=== PATIENT | female | born 1945 | race Hispanic/Latino ===

== ENCOUNTER → 2018-01-13 | Outpatient (CLI) | payer MEDICARE, OTHER ==
[~2018-01-13] MED LIST: ALPR0.5T8 PO; ASPI-1181 PO; CALC-727 PO; CHOL200074 PO; DICL50TA7 PO; DIVA125T32 PO; FOLI-74 PO; HYDR200T82 PO; LOVA40TA2 PO; PROM25TA7 PO; TRIA1CAP6 PO; [UNRECOGNIZED DRUG - OTHER] PO
== END | disposition home or self-care (01) ==
LOC: RAH 07:26
PROVIDERS: ATTEND Internal Medicine
DX: M48.02 Spinal stenosis, cervical region (principal); M47.22 Other spondylosis with radiculopathy, cervical region
CPT/HCPCS: 72141

== ENCOUNTER → 2018-09-22 | Outpatient (CLI) | payer OTHER | END | disposition home or self-care (01) | LOC: OIH 13:10 | PROVIDERS: ATTEND Internal Medicine | DX: I10 Essential (primary) hypertension (principal) | CPT/HCPCS: 71046 ==

== ENCOUNTER 2019-11-14 20:38 | Observation (INO) | payer OTHER ==
[~2019-11-14] VITALS: Ht 157.5 cm; Wt 66.7 kg
[2019-11-14 21:19] LABS: BASOPHILS % (AUTO) 0.4 % (0.0-5.0); EOSINOPHILS % (AUTO) 1.3 % (0.0-8.0); HEMATOCRIT 39.2 % (36-48); LYMPHOCYTES % (AUTO) 35.2 % (21.0-51.0); MEAN CORPUSCULAR HEMOGLOBIN 31.5 pg (27.0-33.0); MEAN CORPUSCULAR HGB CONC 34.2 g/dL (32.0-36.0); MEAN CORPUSCULAR VOLUME 92.2 fL (79-99); MONOCYTES % (AUTO) 7.2 % (3.0-13.0); NEUTROPHILS % (AUTO) 55.8 % (40.0-77.0); PLATELET COUNT (AUTO) 192 K/uL (130-400); RED BLOOD CELL COUNT(AUTO) 4.25 MIL/uL (4.00-5.50); RED CELL DISTRIBUTION WIDTH 12.7 % (11.0-15.5); WHITE BLOOD COUNT (AUTO) 7.9 K/uL (4.8-10.8)
[2019-11-14] MEDS ORDERED: ONDANSETRON HCL 4 MG/2 ML VIAL ONE (21:32)
[2019-11-14] MEDS ORDERED: MORPHINE SULFATE 4 MG/1ML SYG ONE (21:32)
[2019-11-14] MEDS ORDERED: KETOROLAC TROMETHAMINE 15MG/ML ONE (21:32)
[2019-11-14] MEDS ORDERED: SODIUM CHLORIDE 0.9% 1000ML 1,000 ML IV ONE (21:33)
[2019-11-14 21:34] LABS: ALBUMIN 3.9 g/dL (3.5-5.0); BILIRUBIN,DIRECT 0.1 mg/dL (0.0-0.3); BILIRUBIN,TOTAL 0.6 mg/dL (0.2-1.0); TOTAL PROTEIN, SERUM 8.2 g/dL (6.0-8.3)
[2019-11-14 22:13] LABS: POTASSIUM 2.5 mmol/L (3.5-5.1)
[2019-11-14] MEDS ORDERED: POTASSIUM CHLORIDE 20MEQ/100ML 200 ML IV ONE (22:58)
[2019-11-14] MEDS ORDERED: MORPHINE SULFATE 4 MG/1ML SYG IVP PRN (23:15)
[2019-11-14] MEDS: DEXTROSE 5 %-0.45 % NACL 1,000 ML IV SCH (23:45)
[2019-11-14] MEDS ORDERED: TOPI50TA24 PO (23:58)
[2019-11-14] MEDS ORDERED: PANT40TA25 PO (23:58)
[2019-11-15] VITALS (7 sets, daily range): BP systolic 93–139; BP diastolic 57–86
[2019-11-15] MEDS ORDERED: TRAM50TA4 PO (00:05)
[2019-11-15] MEDS: ONDANSETRON HCL 4 MG/2 ML VIAL IVP PRN ×2 (01:12→07:33)
[2019-11-15 04:37] LABS: HEMATOCRIT 36.9 % (36-48); MEAN CORPUSCULAR HEMOGLOBIN 31.5 pg (27.0-33.0); MEAN CORPUSCULAR HGB CONC 33.1 g/dL (32.0-36.0); MEAN CORPUSCULAR VOLUME 95.3 fL (79-99); PLATELET COUNT (AUTO) 179 K/uL (130-400); RED BLOOD CELL COUNT(AUTO) 3.87 MIL/uL (4.00-5.50); RED CELL DISTRIBUTION WIDTH 12.7 % (11.0-15.5); WHITE BLOOD COUNT (AUTO) 6.9 K/uL (4.8-10.8)
[2019-11-15 05:09] LABS: ALBUMIN 3.3 g/dL (3.5-5.0); BILIRUBIN,TOTAL 0.4 mg/dL (0.2-1.0); TOTAL PROTEIN, SERUM 6.8 g/dL (6.0-8.3)
[2019-11-15 05:34] LABS: POTASSIUM 2.7 mmol/L (3.5-5.1)
[2019-11-15] MEDS ORDERED: POTASSIUM CHLORIDE 10% ELIXIR 20 MEQ/15 ML UDCUP PO PRN (06:00)
[2019-11-15] MEDS ORDERED: LIDOCAINE HCL-MPF 1% 2ML VIAL IV PRN ×2 (06:00→06:15)
[2019-11-15] MEDS ORDERED: POTASSIUM CHLORIDE 20MEQ/100ML 100 ML IV PRN (06:15)
[2019-11-15] MEDS: POTASSIUM CHLORIDE 20MEQ/100ML 100 ML IV PRN (06:26)
[2019-11-15] MEDS ORDERED: PEG 3350/NA SULF,BICARB,CL/KCL 4000 ML SOLN PO SCH (06:30)
--- NOTE | 2019-11-15 06:30 | NUR ---
MD REX TORRES VISITED WITH PATIENT. POC DISCUSSED. NEW ORDERS RECEIVED AND CARRIED OUT. PATIENT AWARE OF NEW ORDERS. SPOUSE AT BEDSIDE. CALL LIGHT WITHIN REACH. WILL CONTINUE TO BE OBSERVED. Addendum: 11/15/19 at 0644 by KYLE MONTEIRO RN RN Amended: Links added.
--- NOTE | 2019-11-15 06:44 | NUR ---
RANDA COOPEREMA GIVEN PER MD ORDERS. RESULTS PENDING. Addendum: 11/15/19 at 0645 by KYLE MONTEIRO RN RN Amended: Links added.
--- NOTE | 2019-11-15 10:33 | NUR ---
INITIAL Patient lives with spouse. no home services. DME: [facility], shower chair. Patient states she is able to complete ADL's independently and drives. PCP is Dr. Everett. Pharmacy is [facility] in [place]. DCP is home. Addendum: 11/15/19 at 1034 by MARCUS THURSTON SS Amended: Links added.
[2019-11-15] MEDS: PANTOPRAZOLE 40 MG/VIAL IVP SCH (11:43)
[2019-11-15] MEDS ORDERED: MAGNESIUM HYDROXIDE 30 ML/UDCUP PO SCH (11:45)
[2019-11-15] MEDS: POTASSIUM CHLORIDE 20 MEQ ERTAB PO PRN ×2 (11:46→20:14)
[2019-11-15] MEDS: DEXTROSE 5 %-0.45 % NACL 1,000 ML IV SCH ×2 (11:46→20:14)
[2019-11-15] MEDS ORDERED: PROMETHAZINE HCL 25 MG/ML 1ML AMPULE IM PRN (12:00)
--- NOTE | 2019-11-15 12:02 | NUR ---
SPOKE WITH DR. DELACRUZ MADE AWARE PATIENT CONTINUES VOMITING NOT RELIEVED BY ZOFRAN. NEW ORDER PHENERGAN PRN, LACTULOSE 30CC Q8 UNTIL BOWEL MOVEMENT. D/C GOLFREDYLY, OK MOM PER PATIENT REQUEST. ALSO MADE DR. DELACRUZ AWARE OF EPISODE OF BRADYCARDIA IN 30S LASTING 11 SECONDS, PATIENT WAS VOMITING AT DURING EPISODE OF BRADYCARDIA. PER DR. DELACRUZ NO NEW ORDERS CONTINUE TO MONITOR
--- NOTE | 2019-11-15 12:25 | NUR ---
RD NOTIFICATION DIET: CLEAR LIQUIDS. PT UNABLE TO PASS BM AND HAS FECAL IMPACTION. LABS REVIEWED (K 2.7). MEDS REVIEWED. SKIN IS INTACT. PT STATED UNABLE TO PASS BM AT HOME AND WAS TAKING STOOL SOFTENERS. SHE HAS HAD EPISODES OF EMESIS SINCE TUESDAY WITH ABDOMINAL PAIN AND DISCOMFORT. RD PROVIDED HIGH FIBER AND FLUIDS NUTRITION EDUCATION WITH A LIST OF FOODS HIGH IN POTASSIUM RD RECOMMENDS TO ADVANCE DIET WHEN MEDICALLY FEASIBLE MONITOR BM AND K LEVEL Addendum: 11/15/19 at [address] Amended: Links added.
--- NOTE | 2019-11-15 12:30 | NUR ---
NUTRITION EDUCATION COMPLETED RD PROVIDED HIGH FIBER AND FLUIDS NUTRITION EDUCATION, ALONG WITH A LIST OF FOODS HIGH IN POTASSIUM. PT AND DAUGHTER VERBALIZED UNDERSTANDING. EDUCATION MATERIALS WERE PROVIDED IN FRENCH. Addendum: 11/15/19 at [address] Amended: Links added.
[2019-11-15] MEDS: LACTULOSE 20 GM/30 ML UDCUP PO SCH ×2 (16:31→20:00)
[2019-11-16 03:58] VITALS: BP 98/57
[2019-11-16] MEDS: LACTULOSE 20 GM/30 ML UDCUP PO SCH ×2 (04:00→12:00)
[2019-11-16] MEDS: POTASSIUM CHLORIDE 20 MEQ ERTAB PO PRN (06:50)
[2019-11-16] MEDS: DEXTROSE 5 %-0.45 % NACL 1,000 ML IV SCH ×2 (06:54→09:48)
[2019-11-16 08:20] VITALS: BP 117/72
[2019-11-16] MEDS: POTASSIUM CHLORIDE 20MEQ/100ML 100 ML IV PRN (09:47)
[2019-11-16] MEDS: PANTOPRAZOLE 40 MG/VIAL IVP SCH (09:47)
[2019-11-16 12:08] VITALS: BP 122/69
[2019-11-16 16:00] VITALS: BP 121/65
[2019-11-16 19:50] VITALS: BP 118/74
== END 2019-11-16 22:05 | disposition home or self-care (01) ==
LOC: EDH 20:38 → 4DH 22:30
PROVIDERS: ADMIT Internal Medicine; ATTEND Internal Medicine
DX: K29.70 Gastritis, unspecified, without bleeding (principal); E86.0 Dehydration; I10 Essential (primary) hypertension; E78.5 Hyperlipidemia, unspecified; G43.909 Migraine, unspecified, not intractable, without status migrainosus; K56.41 Fecal impaction; E87.2 Acidosis; Z90.710 Acquired absence of both cervix and uterus; E87.6 Hypokalemia
CPT/HCPCS: 36415 ×3; 74176; 80048; 80053; 80076; 82550; 83690; 84132 ×3; 84484; 85025; 85027; 93005; 96361 ×3; 96365; 96366 ×2; 96372; 96375; 96376; 99285; C9113 ×2; G0378 ×3; J1885; J2270 ×2; J2405 ×3; J2550; J3480 ×3; J3490; J7030; J7042 ×4

== ENCOUNTER 2020-11-17 09:39 | Observation (INO) | payer OTHER ==
[~2020-11-17] VITALS: Ht 157.5 cm; Wt 65.9 kg
[~2020-11-17 09:39] MED LIST changes: -ALPR0.5T8 PO; -ASPI-1181 PO; -CALC-727 PO; -CHOL200074 PO; -DICL50TA7 PO; -DIVA125T32 PO; -HYDR200T82 PO; -LOVA40TA2 PO; +PANT40TA54 PO; +TOPI50TA24 PO; +TRAM50TA4 PO
[2020-11-17 10:07] LABS: BASOPHILS % (AUTO) 0.3 % (0.0-5.0); EOSINOPHILS % (AUTO) 0.4 % (0.0-8.0); HEMATOCRIT 39.8 % (36-48); LYMPHOCYTES % (AUTO) 16.1 % (21.0-51.0); MEAN CORPUSCULAR HEMOGLOBIN 31.8 pg (27.0-33.0); MEAN CORPUSCULAR HGB CONC 35.4 g/dL (32.0-36.0); MEAN CORPUSCULAR VOLUME 89.8 fL (79-99); MONOCYTES % (AUTO) 6.7 % (3.0-13.0); NEUTROPHILS % (AUTO) 76.2 % (40.0-77.0); PLATELET COUNT (AUTO) 200 K/uL (130-400); RED BLOOD CELL COUNT(AUTO) 4.43 MIL/uL (4.00-5.50); RED CELL DISTRIBUTION WIDTH 11.9 % (11.0-15.5); WHITE BLOOD COUNT (AUTO) 7.3 K/uL (4.8-10.8)
[2020-11-17 10:18] LABS: ALBUMIN 4.1 g/dL (3.5-5.0); BILIRUBIN,TOTAL 0.8 mg/dL (0.2-1.0); CREATININE 0.8 mg/dL (0.5-1.5); TOTAL PROTEIN, SERUM 8.2 g/dL (6.0-8.3)
[2020-11-17 10:28] LABS: CREATINE KINASE, TOTAL 81 U/L (21-232); MYOGLOBIN 51 ng/mL (10-92); TROPONIN I < 0.04 ng/mL (0.00-0.06)
[2020-11-17 10:52] LABS: APPEARANCE,URINE Clear (CLEAR); BILIRUBIN,URINE Negative (NEGATIVE); COLOR,URINE Yellow (YELLOW); GLUCOSE, URINE (UA) Negative (NEGATIVE); KETONES,URINE Negative (NEGATIVE); LEUKOCYTE ESTERASE ,URINE Small (NEGATIVE); NITRATE,URINE Negative (NEGATIVE); OCCULT BLOOD,URINE Small (NEGATIVE); PROTEIN,URINE Negative (NEGATIVE); UROBILINOGEN,URINE 0.2 mg/dL (0.2-1.0)
[2020-11-17 11:08] LABS: BACTERIA,URINE Rare /HPF (None Seen); WBC,URINE 0-1 /HPF (0-1)
[2020-11-17] MEDS ORDERED: MORPHINE SULFATE 4 MG/1ML SYG ONE (11:22)
[2020-11-17] MEDS ORDERED: ONDANSETRON HCL 4 MG/2 ML VIAL ONE (11:22)
[2020-11-17] MEDS ORDERED: POTASSIUM BICARB/CIT AC 25 MEQ TABLET.EFF ONE (11:48)
[2020-11-17] MEDS ORDERED: IOHEXOL-350 75 ML VIAL IV ONE (12:35)
[2020-11-17] MEDS ORDERED: METOCLOPRAMIDE 10 MG/2 ML VIAL ONE (14:40)
[2020-11-17] MEDS ORDERED: POTASSIUM CHLORIDE 10% ELIXIR 20 MEQ/15 ML UDCUP PO PRN (15:15)
[2020-11-17] MEDS ORDERED: POTASSIUM CHLORIDE 20 MEQ ERTAB PO PRN (15:15)
[2020-11-17 21:10] VITALS: BP 160/69
[2020-11-17] MEDS: FAMOTIDINE/PF 20 MG/2 ML VIAL IV SCH (21:38)
[2020-11-17] MEDS: SODIUM CHLORIDE 0.9% 1000ML 1,000 ML IV SCH (21:38)
[2020-11-17] MEDS: LIDOCAINE HCL-MPF 1% 2ML VIAL IJ PRN (21:38)
[2020-11-17] MEDS: ONDANSETRON HCL 4 MG/2 ML VIAL IVP PRN (21:38)
[2020-11-17] MEDS: POTASSIUM CHLORIDE 20MEQ/100ML 100 ML IV PRN (21:39)
[2020-11-17] MEDS ORDERED: METO5TAB2 PO (22:10)
[2020-11-17] MEDS ORDERED: ALPR-411 PO (22:10)
[2020-11-17] MEDS ORDERED: METOCLOPRAMIDE 5 MG TABLET PO PRN (22:15)
[2020-11-17] MEDS ORDERED: FLU VACC QS2020-21(6MOS UP)/PF 60 MCG/0.5 ML ML IM ONE (23:30)
[2020-11-18] VITALS: BP 155/76
[2020-11-18] MEDS: ALPRAZOLAM 1 MG TAB PO SCH ×2 (00:17→10:38)
[2020-11-18] MEDS: POTASSIUM CHLORIDE 20MEQ/100ML 100 ML IV PRN (00:19)
[2020-11-18] MEDS: LIDOCAINE HCL-MPF 1% 2ML VIAL IJ PRN (00:20)
[2020-11-18 04:55] LABS: HEMATOCRIT 39.5 % (36-48); MEAN CORPUSCULAR HEMOGLOBIN 31.4 pg (27.0-33.0); MEAN CORPUSCULAR HGB CONC 34.7 g/dL (32.0-36.0); MEAN CORPUSCULAR VOLUME 90.4 fL (79-99); RED BLOOD CELL COUNT(AUTO) 4.37 MIL/uL (4.00-5.50); RED CELL DISTRIBUTION WIDTH 11.7 % (11.0-15.5); WHITE BLOOD COUNT (AUTO) 7.6 K/uL (4.8-10.8)
[2020-11-18] MEDS ORDERED: SUMA100T16 PO (05:06)
[2020-11-18 05:08] LABS: ALBUMIN 3.5 g/dL (3.5-5.0); BILIRUBIN,TOTAL 0.7 mg/dL (0.2-1.0); CREATININE 0.7 mg/dL (0.5-1.5); POTASSIUM 4.2 mmol/L (3.5-5.1); TOTAL PROTEIN, SERUM 7.2 g/dL (6.0-8.3)
[2020-11-18] MEDS: SODIUM CHLORIDE 0.9% 1000ML 1,000 ML IV SCH ×2 (05:08→10:38)
[2020-11-18 05:10] VITALS: BP 164/88
[2020-11-18] MEDS ORDERED: SUMATRIPTAN SUCCINATE 25 MG TABLET PO PRN (05:15)
[2020-11-18 07:08] VITALS: BP 149/74
[2020-11-18] MEDS ORDERED: PANTOPRAZOLE SODIUM 40 MG TABLET.DR PO SCH (07:30)
[2020-11-18] MEDS ORDERED: PNEUMOCOCCAL VACCINE POLYVALENT 0.5 ML/VIAL [PPV] IM ONE (09:00)
[2020-11-18] MEDS ORDERED: TRIAMTEREN/HCTZ 37.5/25 MG 1 TAB TAB PO SCH (09:00)
[2020-11-18] MEDS ORDERED: TOPIRAMATE 100 MG TAB PO SCH (09:00)
[2020-11-18] MEDS: FAMOTIDINE/PF 20 MG/2 ML VIAL IV SCH (10:35)
[2020-11-18] MEDS: ONDANSETRON HCL 4 MG/2 ML VIAL IVP PRN (10:35)
[2020-11-18 11:24] VITALS: BP 159/85
[2020-11-18 16:04] VITALS: BP 143/74
== END 2020-11-18 18:15 | disposition home or self-care (01) ==
LOC: EDH 09:39 → EDHIP 14:44 → 3CH 19:52
PROVIDERS: ADMIT Internal Medicine; ATTEND Internal Medicine
DX: E86.0 Dehydration (principal); E87.6 Hypokalemia; K52.9 Noninfective gastroenteritis and colitis, unspecified; E87.1 Hypo-osmolality and hyponatremia; I10 Essential (primary) hypertension; E78.00 Pure hypercholesterolemia, unspecified; F32.9 Major depressive disorder, single episode, unspecified; M19.90 Unspecified osteoarthritis, unspecified site; Z23 Encounter for immunization; Z90.710 Acquired absence of both cervix and uterus; Z79.899 Other long term (current) drug therapy; Z88.0 Allergy status to penicillin
CPT/HCPCS: 36415 ×2; 74177; 80053 ×2; 81001; 82150; 82550; 83690; 83874; 84484; 85025; 85027; 90732; 93005; 96361; 96365; 96366 ×2; 96375; 96376; 99285; G0008; G0009; G0378 ×27; J2270; J2405 ×3; J2765; J3480; J3490 ×3; J7030; Q2035; Q9967

== ENCOUNTER → 2021-03-26 | Outpatient (CLI) | payer OTHER ==
[~2021-03-26] MED LIST changes: +ALPR-411 PO; -FOLI-74 PO; +METO5TAB2 PO; -PROM25TA7 PO; +SUMA100T16 PO; -TRAM50TA4 PO; -[UNRECOGNIZED DRUG - OTHER] PO
== END | disposition home or self-care (01) ==
LOC: RAH 10:50
PROVIDERS: ATTEND Internal Medicine Gastroenterology
DX: K31.84 Gastroparesis (principal); R68.81 Early satiety; R11.2 Nausea with vomiting, unspecified
CPT/HCPCS: 78264; A9541

== ENCOUNTER 2021-04-30 18:33 | Emergency (ER) | payer OTHER ==
[~2021-04-30] VITALS: Ht 157.5 cm; Wt 68.0 kg
[2021-04-30 18:36] VITALS: BP 184/96
[2021-04-30] MEDS ORDERED: DiphenhydrAMINE HCL 50 MG/ML VIAL ONE (20:20)
[2021-04-30] MEDS ORDERED: PROCHLORPERAZINE 10MG/2ML INJ ONE (20:20)
[2021-04-30] MEDS ORDERED: FAMOTIDINE 20MG VIAL IV ONE ×2 (20:21→20:30)
[2021-04-30] MEDS ORDERED: DiphenhydrAMINE HCL 50 MG/ML VIAL IV ONE (20:30)
[2021-04-30] MEDS ORDERED: 0.9%NACL 1000ML 1,000 ML IV ONE ×2 (20:30→21:20)
[2021-04-30] MEDS ORDERED: PROCHLORPERAZINE 10MG/2ML INJ IV ONE (20:30)
[2021-04-30 21:21] LABS: CREATININE 0.9 mg/dL (0.5-1.5); POTASSIUM 3.7 mmol/L (3.5-5.1)
[2021-04-30 21:22] LABS: INR 1.09 (0.85-1.15); PROTHROMBIN TIME 11.8 SEC (9.6-11.6)
[2021-04-30 21:26] LABS: ALBUMIN 3.9 g/dL (3.5-5.0); BILIRUBIN,TOTAL 0.8 mg/dL (0.2-1.0); TOTAL PROTEIN, SERUM 8.2 g/dL (6.0-8.3)
[2021-04-30 21:35] LABS: BASOPHILS % (AUTO) 0.6 % (0.0-5.0); EOSINOPHILS % (AUTO) 0.1 % (0.0-8.0); HEMATOCRIT 39.9 % (36-48); LYMPHOCYTES % (AUTO) 22.1 % (21.0-51.0); MEAN CORPUSCULAR HEMOGLOBIN 30.8 pg (27.0-33.0); MEAN CORPUSCULAR HGB CONC 33.6 g/dL (32.0-36.0); MEAN CORPUSCULAR VOLUME 91.7 fL (79-99); NEUTROPHILS % (AUTO) 67.6 % (40.0-77.0); PLATELET COUNT (AUTO) 169 K/uL (130-400); RED BLOOD CELL COUNT(AUTO) 4.35 MIL/uL (4.00-5.50); RED CELL DISTRIBUTION WIDTH 12.9 % (11.0-15.5); WHITE BLOOD COUNT (AUTO) 7.1 K/uL (4.8-10.8)
[2021-04-30 21:42] LABS: PARTIAL THROMBOPLASTIN TIME 21.1 SEC (26.3-35.5)
[2021-04-30 21:57] LABS: B-TYPE NATRIURETIC PEPTIDE 232 pg/mL (0-100)
[2021-04-30 23:17] LABS: APPEARANCE,URINE Clear (CLEAR); BILIRUBIN,URINE Negative (NEGATIVE); COLOR,URINE Yellow (YELLOW); GLUCOSE, URINE (UA) Negative (NEGATIVE); KETONES,URINE Negative (NEGATIVE); LEUKOCYTE ESTERASE ,URINE Trace (NEGATIVE); NITRATE,URINE Negative (NEGATIVE); OCCULT BLOOD,URINE Small (NEGATIVE); PROTEIN,URINE POS 1+ mg/dL (NEGATIVE); UROBILINOGEN,URINE 0.2 mg/dL (0.2-1.0)
[2021-04-30 23:22] VITALS: BP 174/92
[2021-04-30 23:24] LABS: BACTERIA,URINE None Seen /HPF (None Seen); RBC,URINE 0-1 /HPF (0-1); SQUAMOUS EPITHELIAL CELL,UR Rare /HPF (0-2); WBC,URINE 0-1 /HPF (0-1)
[2021-05-01] MEDS ORDERED: FAMO-136 PO (01:10)
[2021-05-01] MEDS ORDERED: ONDA4TAB4 PO (01:10)
[2021-05-01 01:31] VITALS: BP 154/77
== END 2021-05-01 02:47 | disposition home or self-care (01) ==
LOC: EDH 18:33
DX: K29.70 Gastritis, unspecified, without bleeding (principal); K52.9 Noninfective gastroenteritis and colitis, unspecified; K29.80 Duodenitis without bleeding; E86.0 Dehydration; I10 Essential (primary) hypertension; E78.00 Pure hypercholesterolemia, unspecified; M19.90 Unspecified osteoarthritis, unspecified site; G43.909 Migraine, unspecified, not intractable, without status migrainosus; Z88.0 Allergy status to penicillin; Z79.899 Other long term (current) drug therapy
CPT/HCPCS: 36415; 71045; 80053; 81001; 83880; 84484; 85025; 85610; 85730; 93005; 96361; 96374; 96375; 99285; J0780; J1200; J3490; J7030

== ENCOUNTER 2022-02-17 06:06 | Emergency (ER) | payer OTHER ==
[~2022-02-17] VITALS: Ht 157.5 cm; Wt 67.6 kg
[~2022-02-17 06:06] MED LIST changes: +FAMO-136 PO; +ONDA4TAB4 PO; -TRIA1CAP6 PO; +TRIA1CAP87 PO
[2022-02-17] MEDS ORDERED: ONDANSETRON 4MG INJ ONE (06:30)
[2022-02-17] MEDS ORDERED: MAG/ALUM/SIMETH 30 ML UDCUP ONE (06:30)
[2022-02-17 06:35] LABS: BASOPHILS % (AUTO) 0.7 % (0.0-5.0); EOSINOPHILS % (AUTO) 2.2 % (0.0-8.0); HEMATOCRIT 37.8 % (36-48); LYMPHOCYTES % (AUTO) 34.7 % (21.0-51.0); MEAN CORPUSCULAR HEMOGLOBIN 31.9 pg (27.0-33.0); MEAN CORPUSCULAR HGB CONC 34.4 g/dL (32.0-36.0); MEAN CORPUSCULAR VOLUME 92.6 fL (79-99); MONOCYTES % (AUTO) 7.8 % (3.0-13.0); NEUTROPHILS % (AUTO) 54.4 % (40.0-77.0); PLATELET COUNT (AUTO) 191 K/uL (130-400); RED BLOOD CELL COUNT(AUTO) 4.08 MIL/uL (4.00-5.50); RED CELL DISTRIBUTION WIDTH 13.4 % (11.0-15.5); WHITE BLOOD COUNT (AUTO) 5.4 K/uL (4.8-10.8)
[2022-02-17 06:46] LABS: APPEARANCE,URINE CLEAR (CLEAR); BILIRUBIN,URINE NEGATIVE (NEGATIVE); COLOR,URINE YELLOW (YELLOW); GLUCOSE, URINE (UA) NEGATIVE (NEGATIVE); KETONES,URINE NEGATIVE (NEGATIVE); LEUKOCYTE ESTERASE ,URINE SMALL (NEGATIVE); NITRATE,URINE NEGATIVE (NEGATIVE); OCCULT BLOOD,URINE TRACE-INTACT (NEGATIVE); PROTEIN,URINE NEGATIVE (NEGATIVE); UROBILINOGEN,URINE 0.2 mg/dL (0.2-1.0)
[2022-02-17 06:51] LABS: BACTERIA,URINE Rare /HPF (None Seen); RBC,URINE 0-1 /HPF (0-1); SQUAMOUS EPITHELIAL CELL,UR Rare /HPF (0-2); WBC,URINE 0-1 /HPF (0-1)
[2022-02-17] MEDS ORDERED: MAG/ALUM/SIMETH 30 ML UDCUP PO ONE (07:00)
[2022-02-17] MEDS ORDERED: ONDANSETRON 4MG INJ IVP ONE (07:00)
[2022-02-17 07:01] LABS: BILIRUBIN,TOTAL 0.9 mg/dL (0.2-1.0); CREATININE 0.8 mg/dL (0.5-1.5); POTASSIUM 3.5 mmol/L (3.5-5.1); TOTAL PROTEIN, SERUM 7.5 g/dL (6.0-8.3)
[2022-02-17] MEDS ORDERED: METOCLOPRAMIDE 10 MG/2 ML VIAL IVP ONE (08:00)
[2022-02-17] MEDS ORDERED: MORPHINE 2 MG SYG IVP ONE (08:00)
[2022-02-17] MEDS ORDERED: LOSARTAN 25 MG TABLET PO ONE (08:00)
[2022-02-17] MEDS ORDERED: LIDOCAINE HCL 2% VISCOUS 15 ML UDCUP PO ONE (08:00)
[2022-02-17] MEDS ORDERED: MAG-55 PO (08:35)
[2022-02-17 08:52] VITALS: BP 159/60
[2022-02-17] MEDS ORDERED: FURO20TA4 PO (22:24)
[2022-02-17] MEDS ORDERED: LOSA25TA41 PO (22:24)
[2022-02-19] MEDS ORDERED: PROPOFOL 10 MG/ML 20ML VIAL IV ONE ×2 (12:13)
[2022-02-19] MEDS ORDERED: LIDOCAINE PF 100MG/5ML (2%) SYRINGE 5ML ONE (12:14)
[2022-02-19] MEDS ORDERED: GLYCOPYRROLATE 1 MG/5 ML SYRINGE ONE (12:15)
== END 2022-02-17 08:54 | disposition home or self-care (01) ==
LOC: EDH 06:06
DX: K29.70 Gastritis, unspecified, without bleeding (principal); T39.395A Adverse effect of other nonsteroidal anti-inflammatory drugs [NSAID], initial encounter; Z20.822 Contact with and (suspected) exposure to COVID-19; I10 Essential (primary) hypertension; Z79.899 Other long term (current) drug therapy; Z88.0 Allergy status to penicillin; Y92.89 Other specified places as the place of occurrence of the external cause
CPT/HCPCS: 36415; 80053; 81001; 84484; 85025; 87635; 87804 ×2; 93005; 96374; 96375; 99284; C9803; J2405; J2765

== ENCOUNTER 2022-02-17 16:18 | Observation (INO) | payer OTHER ==
[~2022-02-17] VITALS: Ht 157.5 cm; Wt 69.0 kg
[~2022-02-17 16:18] MED LIST changes: +MAG-55 PO
[2022-02-17 16:54] LABS: HEMATOCRIT 37.8 % (36-48); MEAN CORPUSCULAR HEMOGLOBIN 31.9 pg (27.0-33.0); MEAN CORPUSCULAR HGB CONC 34.1 g/dL (32.0-36.0); MEAN CORPUSCULAR VOLUME 93.3 fL (79-99); RED BLOOD CELL COUNT(AUTO) 4.05 MIL/uL (4.00-5.50); RED CELL DISTRIBUTION WIDTH 13.2 % (11.0-15.5); WHITE BLOOD COUNT (AUTO) 6.7 K/uL (4.8-10.8)
[2022-02-17] MEDS ORDERED: MAG/ALUM/SIMETH 30 ML UDCUP PO PRN (17:00)
[2022-02-17] MEDS ORDERED: CLONIDINE HCL 0.1 MG TABLET PO PRN (17:00)
[2022-02-17] MEDS ORDERED: 0.9%NACL 1000ML 1,000 ML IV SCH (17:00)
[2022-02-17] MEDS ORDERED: DICYCLOMINE HCL 10 MG/5 ML ML PO PRN (17:00)
[2022-02-17 17:11] LABS: CARBON DIOXIDE 24 mmol/L (21-32); CHLORIDE 100 mmol/L (101-111); CREATININE 0.9 mg/dL (0.5-1.5); GLOMERULAR FILTR. RATE CALC 65 mL/min (>60); GLUCOSE,RANDOM 108 mg/dL (70-105); POTASSIUM 3.2 mmol/L (3.5-5.1); SODIUM SERUM 134 mmol/L (136-145); UREA NITROGEN, BLOOD 14 mg/dL (7-18)
[2022-02-17] MEDS: PANTOPRAZOLE 40 MG TAB DR PO SCH (17:19)
[2022-02-17] MEDS: ONDANSETRON 4MG INJ IVP PRN (17:20)
[2022-02-17 17:22] LABS: ALANINE AMINOTRANSFERASE 34 U/L (12-78); ALBUMIN 4.1 g/dL (3.5-5.0); AMYLASE 41 U/L (25-115); ASPARTATE AMINOTRANSFERASE 21 U/L (10-37); BILIRUBIN,TOTAL 0.9 mg/dL (0.2-1.0); CREATINE KINASE, TOTAL 133 U/L (21-232); LIPASE 66 U/L (114-286); MYOGLOBIN 154 ng/mL (10-92); TOTAL PROTEIN, SERUM 7.6 g/dL (6.0-8.3)
[2022-02-17 17:37] LABS: CRP QUANTITATIVE < 2.00 mg/L (0.00-9.0)
[2022-02-17] MEDS: 1/2 NS 1000ML 1,000 ML IV SCH (17:49)
[2022-02-17 18:06] LABS: APPEARANCE,URINE Clear (CLEAR); BILIRUBIN,URINE Negative (NEGATIVE); COLOR,URINE Yellow (YELLOW); GLUCOSE, URINE (UA) Negative (NEGATIVE); KETONES,URINE Trace mg/dL (NEGATIVE); LEUKOCYTE ESTERASE ,URINE Negative (NEGATIVE); NITRATE,URINE Negative (NEGATIVE); OCCULT BLOOD,URINE Negative (NEGATIVE); PROTEIN,URINE Negative (NEGATIVE); UROBILINOGEN,URINE 0.2 mg/dL (0.2-1.0)
[2022-02-17] MEDS ORDERED: KCL 20 MEQ ERTAB PO PRN (18:30)
[2022-02-17] MEDS ORDERED: POTASSIUM CHLORIDE 10% ELIXIR 20 MEQ/15 ML UDCUP PO PRN (18:30)
[2022-02-17] MEDS: SUCRALFATE 1 GM TABLET PO PRN (20:33)
[2022-02-17 22:05] VITALS: BP 172/89
[2022-02-17] MEDS ORDERED: FURO20TA4 PO (22:24)
[2022-02-17] MEDS ORDERED: LOSA25TA41 PO (22:24)
[2022-02-17] MEDS: LIDOCAINE HCL-MPF 1% 2ML VIAL IJ PRN (22:33)
[2022-02-17] MEDS: POTASSIUM CHLORIDE 20MEQ/100ML 100 ML IV PRN (22:33)
[2022-02-17] MEDS: ACETAMINOPHEN 325 MG TAB PO PRN (22:58)
[2022-02-17 23:57] VITALS: BP 150/78
[2022-02-18] MEDS: LIDOCAINE HCL-MPF 1% 2ML VIAL IJ PRN (00:32)
[2022-02-18] MEDS: POTASSIUM CHLORIDE 20MEQ/100ML 100 ML IV PRN (00:33)
[2022-02-18] MEDS: 1/2 NS 1000ML 1,000 ML IV SCH ×3 (03:00→13:00)
[2022-02-18] MEDS: ONDANSETRON 4MG INJ IVP PRN (03:51)
[2022-02-18 04:00] VITALS: BP 165/88
[2022-02-18 05:00] LABS: HEMATOCRIT 34.4 % (36-48); RED BLOOD CELL COUNT(AUTO) 3.66 MIL/uL (4.00-5.50); RED CELL DISTRIBUTION WIDTH 13.8 % (11.0-15.5); WHITE BLOOD COUNT (AUTO) 5.9 K/uL (4.8-10.8)
[2022-02-18] MEDS: SUCRALFATE 1 GM TABLET PO PRN (05:05)
[2022-02-18 05:18] LABS: CREATININE 0.8 mg/dL (0.5-1.5)
[2022-02-18] MEDS ORDERED: METOCLOPRAMIDE 5 MG TABLET PO PRN (07:00)
[2022-02-18 07:05] VITALS: BP 174/99
[2022-02-18] MEDS: LOSARTAN 25 MG TABLET PO SCH (08:10)
[2022-02-18] MEDS: PANTOPRAZOLE 40 MG TAB DR PO SCH (08:10)
[2022-02-18] MEDS: FUROSEMIDE 20 MG TABLET PO SCH (08:11)
[2022-02-18] MEDS: ALPRAZOLAM 1 MG TAB PO SCH ×3 (08:18→21:15)
[2022-02-18] MEDS: TOPIRAMATE 25 MG TABLET PO SCH ×2 (08:55→21:16)
[2022-02-18 11:05] VITALS: BP 128/71
[2022-02-18] MEDS: SUMATRIPTAN SUCCINATE 25 MG TABLET PO PRN (13:15)
[2022-02-18 15:05] VITALS: BP 148/77
[2022-02-18 20:30] VITALS: BP 108/77
[2022-02-19] VITALS (22 sets, daily range): BP systolic 106–177; BP diastolic 63–134
[2022-02-19] MEDS: ACETAMINOPHEN 325 MG TAB PO PRN (04:24)
[2022-02-19 05:08] LABS: HEMATOCRIT 35.2 % (36-48); MEAN CORPUSCULAR HEMOGLOBIN 31.3 pg (27.0-33.0); MEAN CORPUSCULAR HGB CONC 32.7 g/dL (32.0-36.0); MEAN CORPUSCULAR VOLUME 95.7 fL (79-99); RED BLOOD CELL COUNT(AUTO) 3.68 MIL/uL (4.00-5.50); RED CELL DISTRIBUTION WIDTH 13.9 % (11.0-15.5); WHITE BLOOD COUNT (AUTO) 6.2 K/uL (4.8-10.8)
[2022-02-19] MEDS: 1/2 NS 1000ML 1,000 ML IV SCH ×3 (05:27→19:00)
[2022-02-19 05:41] LABS: ALBUMIN 3.4 g/dL (3.5-5.0); BILIRUBIN,TOTAL 0.8 mg/dL (0.2-1.0); CREATININE 0.8 mg/dL (0.5-1.5); POTASSIUM 3.8 mmol/L (3.5-5.1); TOTAL PROTEIN, SERUM 6.5 g/dL (6.0-8.3)
[2022-02-19] MEDS: ALPRAZOLAM 1 MG TAB PO SCH ×3 (08:14→21:22)
[2022-02-19] MEDS: FUROSEMIDE 20 MG TABLET PO SCH (08:14)
[2022-02-19] MEDS: PANTOPRAZOLE 40 MG TAB DR PO SCH (08:14)
[2022-02-19] MEDS: LOSARTAN 25 MG TABLET PO SCH (08:14)
[2022-02-19] MEDS: TOPIRAMATE 25 MG TABLET PO SCH ×2 (08:40→21:22)
[2022-02-20] VITALS: BP 133/73
[2022-02-20] MEDS ORDERED: SUMATRIPTAN SUCCINATE 6 MG/VIAL 0.5ML SQ ONE (03:03)
[2022-02-20] MEDS: ACETAMINOPHEN 325 MG TAB PO PRN (03:17)
[2022-02-20 04:00] VITALS: BP 139/74
[2022-02-20] MEDS: SUMATRIPTAN SUCCINATE 25 MG TABLET PO PRN (06:48)
[2022-02-20 08:00] VITALS: BP 130/72
[2022-02-20] MEDS: TOPIRAMATE 25 MG TABLET PO SCH (08:35)
[2022-02-20] MEDS: ALPRAZOLAM 1 MG TAB PO SCH (08:35)
[2022-02-20] MEDS: FUROSEMIDE 20 MG TABLET PO SCH (08:35)
[2022-02-20] MEDS: LOSARTAN 25 MG TABLET PO SCH (08:35)
[2022-02-20] MEDS: PANTOPRAZOLE 40 MG TAB DR PO SCH (08:35)
== END 2022-02-20 10:45 | disposition home or self-care (01) ==
LOC: EDH 16:18 → EDHIP 16:19 → 3AH 21:30
PROVIDERS: ADMIT Internal Medicine; ATTEND Internal Medicine
DX: K21.00 Gastro-esophageal reflux disease with esophagitis, without bleeding (principal); Z20.822 Contact with and (suspected) exposure to COVID-19; K52.9 Noninfective gastroenteritis and colitis, unspecified; K57.30 Diverticulosis of large intestine without perforation or abscess without bleeding; K29.00 Acute gastritis without bleeding; K76.0 Fatty (change of) liver, not elsewhere classified; D50.9 Iron deficiency anemia, unspecified; R11.2 Nausea with vomiting, unspecified; I10 Essential (primary) hypertension; M48.02 Spinal stenosis, cervical region; G43.909 Migraine, unspecified, not intractable, without status migrainosus; E86.0 Dehydration; M19.90 Unspecified osteoarthritis, unspecified site; Z79.899 Other long term (current) drug therapy; Z90.710 Acquired absence of both cervix and uterus; Z88.0 Allergy status to penicillin
CPT/HCPCS: 36415 ×3; 43239; 71046; 71250; 74176; 76700; 78227; 80048; 80053 ×2; 81003; 82150; 82550; 83690 ×3; 83874; 84132; 84484; 85027 ×3; 85651; 86140; 87635; 93005; 96361 ×3; 96374; 96376; A4215; A4606; A4620; A9537; G0378 ×65; G0379; J2405 ×2; J3030; J3480 ×2; J3490 ×2; J7030

== ENCOUNTER 2022-07-25 10:14 | Emergency (ER) | payer OTHER ==
[~2022-07-25] VITALS: Ht 157.5 cm; Wt 67.1 kg
[~2022-07-25 10:14] MED LIST changes: -FAMO-136 PO; +FURO20TA4 PO; +LOSA25TA41 PO; -TRIA1CAP87 PO
[2022-07-25 11:11] LABS: BASOPHILS % (AUTO) 0.5 % (0.0-5.0); EOSINOPHILS % (AUTO) 1.3 % (0.0-8.0); HEMATOCRIT 40.2 % (36-48); LYMPHOCYTES % (AUTO) 30.1 % (21.0-51.0); MEAN CORPUSCULAR HEMOGLOBIN 31.6 pg (27.0-33.0); MEAN CORPUSCULAR HGB CONC 33.8 g/dL (32.0-36.0); MEAN CORPUSCULAR VOLUME 93.3 fL (79-99); MONOCYTES % (AUTO) 7.3 % (3.0-13.0); NEUTROPHILS % (AUTO) 60.5 % (40.0-77.0); PLATELET COUNT (AUTO) 153 K/uL (130-400); RED BLOOD CELL COUNT(AUTO) 4.31 MIL/uL (4.00-5.50); RED CELL DISTRIBUTION WIDTH 12.5 % (11.0-15.5); WHITE BLOOD COUNT (AUTO) 6.1 K/uL (4.8-10.8)
[2022-07-25 11:31] LABS: CREATININE 0.9 mg/dL (0.5-1.5); POTASSIUM 3.7 mmol/L (3.5-5.1)
[2022-07-25 11:35] LABS: ALBUMIN 3.8 g/dL (3.5-5.0); TOTAL PROTEIN, SERUM 7.8 g/dL (6.0-8.3)
[2022-07-25 12:04] LABS: APPEARANCE,URINE CLEAR (CLEAR); BILIRUBIN,URINE NEGATIVE (NEGATIVE); COLOR,URINE COLORLESS (YELLOW); GLUCOSE, URINE (UA) NEGATIVE (NEGATIVE); KETONES,URINE 5 mg/dL (NEGATIVE); LEUKOCYTE ESTERASE ,URINE NEGATIVE Leu/uL (NEGATIVE); NITRATE,URINE NEGATIVE (NEGATIVE); OCCULT BLOOD,URINE NEGATIVE (NEGATIVE); PROTEIN,URINE NEGATIVE (NEGATIVE); UROBILINOGEN,URINE 0.2 mg/dL (0.2-1.0)
[2022-07-25 12:12] LABS: BACTERIA,URINE RARE /HPF (None Seen); RBC,URINE 0-1 /HPF (0-1); SQUAMOUS EPITHELIAL CELL,UR RARE /HPF (0-2); WBC,URINE 0-1 /HPF (0-1)
[2022-07-25] MEDS ORDERED: 0.9%NACL 1000ML 1,000 ML IV ONE (13:00)
[2022-07-25] MEDS ORDERED: LOPERAMIDE HCL 2 MG CAP PO ONE (13:00)
[2022-07-25] MEDS ORDERED: ONDANSETRON 4MG INJ IVP ONE (13:00)
[2022-07-25] MEDS ORDERED: ONDA4TAB10 PO (14:07)
[2022-07-25 14:49] VITALS: BP 173/80
== END 2022-07-25 15:13 | disposition home or self-care (01) ==
LOC: EDH 10:14
DX: K52.9 Noninfective gastroenteritis and colitis, unspecified (principal); E86.0 Dehydration; F32.A Depression, unspecified; F41.9 Anxiety disorder, unspecified; K21.9 Gastro-esophageal reflux disease without esophagitis; Z90.49 Acquired absence of other specified parts of digestive tract; Z88.0 Allergy status to penicillin; Z79.899 Other long term (current) drug therapy
CPT/HCPCS: 99283; 96374; 96361; 80053; 85025; 81001; 36415; J7030; J2405

== ENCOUNTER → 2022-07-28 | Outpatient (CLI) | payer OTHER ==
[~2022-07-28] MED LIST changes: +ONDA4TAB10 PO
== END | disposition home or self-care (01) ==
LOC: RAH 09:11
PROVIDERS: ATTEND Internal Medicine
DX: M47.815 Spondylosis without myelopathy or radiculopathy, thoracolumbar region (principal); R11.2 Nausea with vomiting, unspecified
CPT/HCPCS: 74021

== ENCOUNTER 2022-08-19 18:04 | Emergency (ER) | payer OTHER ==
[~2022-08-19] VITALS: Ht 157.5 cm; Wt 66.2 kg
[2022-08-19 18:53] LABS: BASOPHILS % (AUTO) 0.8 % (0.0-5.0); EOSINOPHILS % (AUTO) 2.4 % (0.0-8.0); HEMATOCRIT 38.8 % (36-48); LYMPHOCYTES % (AUTO) 40.4 % (21.0-51.0); MEAN CORPUSCULAR HEMOGLOBIN 31.6 pg (27.0-33.0); MEAN CORPUSCULAR HGB CONC 33.8 g/dL (32.0-36.0); MEAN CORPUSCULAR VOLUME 93.7 fL (79-99); MONOCYTES % (AUTO) 6.5 % (3.0-13.0); NEUTROPHILS % (AUTO) 49.6 % (40.0-77.0); PLATELET COUNT (AUTO) 156 K/uL (130-400); RED BLOOD CELL COUNT(AUTO) 4.14 MIL/uL (4.00-5.50); RED CELL DISTRIBUTION WIDTH 13.2 % (11.0-15.5); WHITE BLOOD COUNT (AUTO) 6.2 K/uL (4.8-10.8)
[2022-08-19 19:01] LABS: POTASSIUM 3.8 mmol/L (3.5-5.1)
[2022-08-19 19:05] LABS: ALBUMIN 3.7 g/dL (3.5-5.0); TOTAL PROTEIN, SERUM 7.8 g/dL (6.0-8.3)
[2022-08-19 19:27] LABS: APPEARANCE,URINE CLEAR (CLEAR); BILIRUBIN,URINE NEGATIVE (NEGATIVE); COLOR,URINE COLORLESS (YELLOW); GLUCOSE, URINE (UA) NEGATIVE (NEGATIVE); KETONES,URINE NEGATIVE (NEGATIVE); LEUKOCYTE ESTERASE ,URINE NEGATIVE Leu/uL (NEGATIVE); NITRATE,URINE NEGATIVE (NEGATIVE); OCCULT BLOOD,URINE NEGATIVE (NEGATIVE); PROTEIN,URINE NEGATIVE (NEGATIVE); UROBILINOGEN,URINE 0.2 mg/dL (0.2-1.0)
[2022-08-19] MEDS ORDERED: HYDRALAZINE 20MG/ML VIAL IV ONE (19:30)
[2022-08-19 20:00] VITALS: BP 163/68
[2022-08-19] MEDS ORDERED: ONDANSETRON 4MG INJ IV ONE ×2 (20:00→20:30)
[2022-08-19] MEDS ORDERED: ACETAMINOPHEN 500 MG TABLET PO ONE (20:00)
[2022-08-19] MEDS ORDERED: LOSA50TA64 PO (20:24)
[2022-08-19] MEDS ORDERED: NIRM1TAB5 PO (20:24)
[2022-08-19] MEDS ORDERED: MORPHINE 4 MG SYG IVP ONE (20:30)
== END 2022-08-19 20:51 | disposition home or self-care (01) ==
LOC: EDH 18:04
DX: U07.1 COVID-19 (principal); I10 Essential (primary) hypertension; F41.9 Anxiety disorder, unspecified; K21.9 Gastro-esophageal reflux disease without esophagitis; Z88.0 Allergy status to penicillin; Z90.49 Acquired absence of other specified parts of digestive tract; Z79.899 Other long term (current) drug therapy
CPT/HCPCS: 99284; 96374; 96375; 87635; 83735; 84484; 80053; 83880; 85025; 81003; 36415; 96376; 93005; C9803; J0360; J2405 ×2; J2270

== ENCOUNTER → 2022-10-07 | Outpatient (CLI) | payer OTHER ==
[~2022-10-07] MED LIST changes: +LOSA50TA64 PO; +NIRM1TAB5 PO
== END | disposition home or self-care (01) ==
LOC: RAH 15:39
PROVIDERS: ATTEND Student in an Organized Health Care Education/Training Program
DX: G56.11 Other lesions of median nerve, right upper limb (principal); Z88.0 Allergy status to penicillin
CPT/HCPCS: 71046

== ENCOUNTER → 2022-12-20 | Outpatient (CLI) | payer OTHER ==
[~2022-12-20] MED LIST changes: +REGADENOSON 0.4 MG/5 ML PF SYG IVP ONE; +TOPI-255 PO; -TOPI50TA24 PO
== END | disposition home or self-care (01) ==
LOC: SHCH 07:50
PROVIDERS: ATTEND Internal Medicine Cardiovascular Disease
DX: Z01.810 Encounter for preprocedural cardiovascular examination (principal); G56.01 Carpal tunnel syndrome, right upper limb; E78.5 Hyperlipidemia, unspecified; I10 Essential (primary) hypertension; Z79.899 Other long term (current) drug therapy
CPT/HCPCS: 78452; 96374; 93017; J2785; A9500 ×2

== ENCOUNTER → 2023-03-29 | Outpatient (CLI) | payer OTHER ==
[~2023-03-29] MED LIST changes: -REGADENOSON 0.4 MG/5 ML PF SYG IVP ONE
== END | disposition home or self-care (01) ==
LOC: SHCH 07:32
PROVIDERS: ATTEND Internal Medicine Cardiovascular Disease
DX: I37.1 Nonrheumatic pulmonary valve insufficiency (principal); I10 Essential (primary) hypertension; E78.5 Hyperlipidemia, unspecified
CPT/HCPCS: 93306

== ENCOUNTER 2023-05-07 19:10 | Emergency (ER) | payer OTHER ==
[~2023-05-07] VITALS: Ht 157.5 cm; Wt 77.1 kg
[2023-05-07] MEDS ORDERED: 0.9%NACL 1000ML 1,000 ML IV SCH (19:30)
[2023-05-07] MEDS ORDERED: ONDANSETRON 4MG INJ IVP ONE (19:30)
[2023-05-07] MEDS ORDERED: PANTOPRAZOLE 40 MG/VIAL IVP ONE (19:30)
[2023-05-07 19:45] LABS: APPEARANCE,URINE CLEAR (CLEAR); BILIRUBIN,URINE NEGATIVE (NEGATIVE); COLOR,URINE COLORLESS (YELLOW); GLUCOSE, URINE (UA) NEGATIVE (NEGATIVE); KETONES,URINE NEGATIVE (NEGATIVE); LEUKOCYTE ESTERASE ,URINE NEGATIVE Leu/uL (NEGATIVE); NITRATE,URINE NEGATIVE (NEGATIVE); OCCULT BLOOD,URINE NEGATIVE (NEGATIVE); PROTEIN,URINE 30 mg/dL (NEGATIVE); UROBILINOGEN,URINE 0.2 mg/dL (0.2-1.0)
[2023-05-07 19:46] LABS: ADD UA MICROSCOPIC YES
[2023-05-07 19:47] LABS: POTASSIUM 3.1 mmol/L (3.5-5.1)
[2023-05-07 19:50] LABS: BASOPHILS # (AUTO) 0.04 K/uL (0.00-0.20); BASOPHILS % (AUTO) 0.5 % (0.0-5.0); EOSINOPHILS % (AUTO) 1.3 % (0.0-8.0); HEMATOCRIT 41.9 % (36-48); IMMATURE GRANULOCYTE ABSOLUTE 0.02 K/uL (0-1); LYMPHOCYTES % (AUTO) 38.8 % (21.0-51.0); MEAN CORPUSCULAR HEMOGLOBIN 33.4 pg (27.0-33.0); MEAN CORPUSCULAR HGB CONC 35.3 g/dL (32.0-36.0); MEAN CORPUSCULAR VOLUME 94.6 fL (79-99); MONOCYTES # (AUTO) 0.6 K/uL (0.1-1.0); MONOCYTES % (AUTO) 7.3 % (3.0-13.0); NEUTROPHILS % (AUTO) 51.8 % (40.0-77.0); PLATELET COUNT (AUTO) 221 K/uL (130-400); RED BLOOD CELL COUNT(AUTO) 4.43 MIL/uL (4.00-5.50); RED CELL DISTRIBUTION WIDTH 12.6 % (11.0-15.5); WHITE BLOOD COUNT (AUTO) 7.7 K/uL (4.8-10.8)
[2023-05-07 19:51] LABS: BILIRUBIN,TOTAL 0.5 mg/dL (0.2-1.0); TOTAL PROTEIN, SERUM 8.5 g/dL (6.0-8.3)
[2023-05-07 20:00] LABS: BACTERIA,URINE RARE /HPF (None Seen); SQUAMOUS EPITHELIAL CELL,UR RARE /HPF (0-2); WBC,URINE 0-1 /HPF (0-1)
[2023-05-07] MEDS ORDERED: HALOPERIDOL INJ 5 MG/ML VIAL IV ONE (20:00)
[2023-05-07] MEDS ORDERED: HALOPERIDOL INJ 5 MG/ML VIAL IV SCH (20:00)
[2023-05-07 20:13] LABS: AMPHET/METH SCREEN,URINE NEGATIVE (NEGATIVE); BARBITURATE SCREEN, URINE NEGATIVE (NEGATIVE); BENZODIAZEPINES SCREEN,URINE NEGATIVE (NEGATIVE); CANNABINOID SCREEN,URINE NEGATIVE (NEGATIVE); COCAINE SCREEN,URINE NEGATIVE (NEGATIVE); OPIATE SCREEN,URINE NEGATIVE (NEGATIVE); PHENCYCLIDINE SCREEN,URINE NEGATIVE (NEGATIVE)
[2023-05-07] MEDS ORDERED: ONDA-104 PO (21:29)
[2023-05-07] MEDS ORDERED: DICY10 PO (21:29)
[2023-05-07] MEDS ORDERED: POTASSIUM BICARB/CIT AC 25 MEQ TABLET.EFF PO ONE (21:30)
[2023-05-07 21:49] VITALS: BP 152/83; PULSE 70; RESP 18; O2SAT 99
== END 2023-05-07 21:54 | disposition home or self-care (01) ==
LOC: EDH 19:10
DX: E11.43 Type 2 diabetes mellitus with diabetic autonomic (poly)neuropathy (principal); K31.84 Gastroparesis; E78.00 Pure hypercholesterolemia, unspecified; I10 Essential (primary) hypertension; Z79.899 Other long term (current) drug therapy; Z88.0 Allergy status to penicillin
CPT/HCPCS: 99284; 96374; 96361; 96375; 80053; 80305; 83690; 85025; 81001; 36415; J7030; J1630 ×2; J2405; C9113

== ENCOUNTER → 2023-05-25 | Outpatient (CLI) | payer OTHER ==
[~2023-05-25] MED LIST changes: +DICY10 PO; -NIRM1TAB5 PO; +ONDA-104 PO
== END | disposition home or self-care (01) ==
LOC: SHCH 08:57
PROVIDERS: ATTEND Internal Medicine Cardiovascular Disease
DX: I71.40 Abdominal aortic aneurysm, without rupture, unspecified (principal); K55.9 Vascular disorder of intestine, unspecified; R55 Syncope and collapse
CPT/HCPCS: 93975

== ENCOUNTER → 2023-05-26 | Outpatient (CLI) | payer OTHER ==
[2023-05-26 16:23] LABS: CREATININE 0.8 mg/dL (0.5-1.5); POTASSIUM 3.8 mmol/L (3.5-5.1)
== END | disposition home or self-care (01) ==
LOC: LAB 14:42
PROVIDERS: ATTEND Internal Medicine Cardiovascular Disease
DX: I10 Essential (primary) hypertension (principal)
CPT/HCPCS: 36415; 80048

== ENCOUNTER → 2023-06-02 | Outpatient (CLI) | payer OTHER ==
[~2023-06-02] MED LIST changes: +IOHEXOL 350 MG/ML 100ML INFUS..BTL IV ONE
== END | disposition home or self-care (01) ==
LOC: RAH 08:19
PROVIDERS: ATTEND Internal Medicine Cardiovascular Disease
DX: K76.0 Fatty (change of) liver, not elsewhere classified (principal); I71.40 Abdominal aortic aneurysm, without rupture, unspecified; M47.815 Spondylosis without myelopathy or radiculopathy, thoracolumbar region; K44.9 Diaphragmatic hernia without obstruction or gangrene; K57.90 Diverticulosis of intestine, part unspecified, without perforation or abscess without bleeding
CPT/HCPCS: 74174; Q9967

== ENCOUNTER → 2023-08-24 | Outpatient (CLI) | payer OTHER ==
[~2023-08-24] MED LIST changes: +ALBUTEROL 0.083% 2.5 MG/3 ML INH IH ONE; -IOHEXOL 350 MG/ML 100ML INFUS..BTL IV ONE; -TOPI-255 PO; +TOPI-97 PO
== END | disposition home or self-care (01) ==
LOC: RESP 10:26
PROVIDERS: ATTEND Internal Medicine Cardiovascular Disease
DX: R06.00 Dyspnea, unspecified (principal); J45.909 Unspecified asthma, uncomplicated
CPT/HCPCS: 94060

== ENCOUNTER → 2024-04-17 | Outpatient (CLI) | payer OTHER ==
[~2024-04-17] MED LIST changes: -ALBUTEROL 0.083% 2.5 MG/3 ML INH IH ONE; +ONDA-243 PO; -ONDA4TAB10 PO
== END | disposition home or self-care (01) ==
LOC: SHCH 09:41
PROVIDERS: ATTEND Internal Medicine Cardiovascular Disease
DX: I25.10 Atherosclerotic heart disease of native coronary artery without angina pectoris (principal); I10 Essential (primary) hypertension; I65.23 Occlusion and stenosis of bilateral carotid arteries; R42 Dizziness and giddiness; R30.0 Dysuria; R31.9 Hematuria, unspecified; E78.5 Hyperlipidemia, unspecified; Z79.899 Other long term (current) drug therapy
CPT/HCPCS: 93880

== ENCOUNTER 2024-06-07 21:00 | Emergency (ER) | payer OTHER ==
[~2024-06-07] VITALS: Ht 157.5 cm; Wt 65.8 kg
[2024-06-07 21:42] LABS: SARS-CoV-2, RNA, NAAT NEGATIVE SARS CoV-2 (NEGATIVE)
[2024-06-07 21:51] LABS: INFLUENZA TYPE A Negative For Type A (NEGATIVE); INFLUENZA TYPE B Negative For Type B (NEGATIVE)
[2024-06-07 22:03] LABS: BASOPHILS # (AUTO) 0.03 K/uL (0.00-0.20); BASOPHILS % (AUTO) 0.3 % (0.0-5.0); EOSINOPHILS # (AUTO) 0.06 K/uL (0.00-0.70); EOSINOPHILS % (AUTO) 0.5 % (0.0-8.0); HEMATOCRIT 43.8 % (36-48); IMMATURE GRANULOCYTE ABSOLUTE 0.03 K/uL (0-1); LYMPHOCYTES # (AUTO) 1.1 K/uL (1.0-4.8); LYMPHOCYTES % (AUTO) 9.9 % (21.0-51.0); MEAN CORPUSCULAR HEMOGLOBIN 32.6 pg (27.0-33.0); MEAN CORPUSCULAR HGB CONC 33.3 g/dL (32.0-36.0); MEAN CORPUSCULAR VOLUME 97.8 fL (79-99); MONOCYTES # (AUTO) 0.5 K/uL (0.1-1.0); MONOCYTES % (AUTO) 4.7 % (3.0-13.0); NEUTROPHILS # (AUTO) 9.5 K/uL (1.8-7.7); NEUTROPHILS % (AUTO) 84.3 % (40.0-77.0); PLATELET COUNT (AUTO) 183 K/uL (130-400); RED BLOOD CELL COUNT(AUTO) 4.48 MIL/uL (4.00-5.50); RED CELL DISTRIBUTION WIDTH 12.6 % (11.0-15.5); WHITE BLOOD COUNT (AUTO) 11.2 K/uL (4.8-10.8)
[2024-06-07 22:14] LABS: CREATININE 0.9 mg/dL (0.5-1.0); POTASSIUM 3.6 mmol/L (3.5-5.1)
[2024-06-07] MEDS: 0.9%NACL 1000ML 1,000 ML IV ONE (22:51)
[2024-06-07] MEDS: PANTOPrazole 40 MG/VIAL IVP ONE (22:51)
[2024-06-07] MEDS: ondanSETRON 4MG INJ IVP ONE (22:51)
[2024-06-07] MEDS: DICYCLOMINE 20MG (10MG/ML) AMP IM ONE (22:52)
[2024-06-07 22:57] LABS: APPEARANCE,URINE TURBID (CLEAR); BILIRUBIN,URINE NEGATIVE (NEGATIVE); COLOR,URINE LIGHT-YELLOW (YELLOW); GLUCOSE, URINE (UA) NEGATIVE (NEGATIVE); KETONES,URINE 5 mg/dL (NEGATIVE); LEUKOCYTE ESTERASE ,URINE NEGATIVE Leu/uL (NEGATIVE); NITRATE,URINE NEGATIVE (NEGATIVE); OCCULT BLOOD,URINE NEGATIVE (NEGATIVE); PROTEIN,URINE 10 mg/dL (NEGATIVE); UROBILINOGEN,URINE 0.2 mg/dL (0.2-1.0)
[2024-06-07 23:00] LABS: ADD UA MICROSCOPIC YES
[2024-06-07 23:03] LABS: MUCUS,URINE RARE LPF (None Seen); SQUAMOUS EPITHELIAL CELL,UR FEW /HPF (0-2); WBC,URINE 0-1 /HPF (0-1)
[2024-06-07 23:04] LABS: ALBUMIN 3.8 g/dL (3.5-5.0); BILIRUBIN,DIRECT 0.1 mg/dL (0.0-0.3); BILIRUBIN,TOTAL 0.8 mg/dL (0.2-1.0); TOTAL PROTEIN, SERUM 7.7 g/dL (6.0-8.3)
[2024-06-07] MEDS ORDERED: ONDA-243 PO (23:55)
[2024-06-08 00:16] VITALS: BP 137/65; PULSE 70; RESP 18; TEMP 97.9; O2SAT 98
== END 2024-06-08 00:18 | disposition home or self-care (01) ==
LOC: EDH 21:00
DX: K52.9 Noninfective gastroenteritis and colitis, unspecified (principal); Z20.822 Contact with and (suspected) exposure to COVID-19; R11.2 Nausea with vomiting, unspecified; E11.9 Type 2 diabetes mellitus without complications; E78.00 Pure hypercholesterolemia, unspecified; I10 Essential (primary) hypertension; G43.909 Migraine, unspecified, not intractable, without status migrainosus; Z88.0 Allergy status to penicillin; Z79.899 Other long term (current) drug therapy; Z90.710 Acquired absence of both cervix and uterus; Z98.890 Other specified postprocedural states
CPT/HCPCS: 99284; 96374; 87635; 96375; 80076; 80048; 83690; 85025; 87804 ×2; 81001; 36415; 96372; J7030; J2405; J2470; J0500